=== PATIENT | female | born 1965 | race Caucasian/White ===

== ENCOUNTER → 2016-07-22 | Outpatient (CLI) | payer BC ==
[~2016-07-22] MED LIST: ELET40TA PO; HYDR-5688 PO; LEVO100T PO; LEVO150T PO; ONDA4TAB46 PO; OXYC-57 PO; TOPI100T20 PO; TRAM-10 PO
[2016-07-22 14:59] LABS: THYROID STIMULATING HORMONE 0.139 uIu/ml (0.300-4.500)
== END | disposition home or self-care (01) ==
LOC: C.LABBFT 10:06
PROVIDERS: ATTEND Internal Medicine
DX: E03.9 Hypothyroidism, unspecified (principal)

== ENCOUNTER 2016-11-19 18:23 | Emergency (ER) | payer BC ==
[~2016-11-19] VITALS: Ht 170.2 cm; Wt 72.3 kg
[2016-11-19] VITALS (12 sets, daily range): BP systolic 146–201; BP diastolic 78–125; PULSE 73–97; TEMP 37; O2SAT 95–100; Ht 170.2 cm; Wt 72.3 kg
[~2016-11-19 18:23] MED LIST changes: -ELET40TA PO; -HYDR-5688 PO; -LEVO150T PO; -ONDA4TAB46 PO; -OXYC-57 PO; -TRAM-10 PO
--- NOTE | 2016-11-19 18:43 | EMERGENCY ROOM VISIT NOTE ---
History First contact with patient: 18:35 Chief Complaint: WRIST PAIN Stated Complaint: L WRIST INJURY History of Present Illness The patient is a 51 year old female who presents to the Emergency Room with complaints of left wrist pain. Stood on her husbands knee and stood up to reach something when she fell down onto concrete on her left hand side. Fell onto her outstretched hand behind herself with wrist in full extension. Pain, swelling and ecchymosis following fall with clear deformity of her left wrist. Severity of pain 8/10 in wrist. She denies hitting her head, headache, hip pain or back pain. Mild pain on her lower sacrum. She last ate at 12:30pm and last drank 2:30pm. Review of Systems See HPI for pertinent positives & negatives. A total of 6 systems reviewed and were otherwise negative. Past Medical/Surgical History Medical Problems: (1) Hypothyroid Surgical Problems: (1) History of parotid gland removal Social History Smoking Status: Never Smoker Smokeless Tobacco Use: No Drug Use: none Marital Status: Housing Status: lives with family Current/Historical Medications Scheduled Eletriptan (Relpax), 40 MG PO DIRECTED Levothyroxine Sodium (Synthroid), 150 MCG PO DAILY Scheduled PRN Hydrocodone/Acetaminophen 5MG/325MG (Powell 5MG/325MG), 1 TAB PO TID PRN for Pain Ondansetron Hcl (Zofran), 4 MG PO Q4 PRN for Nausea Tramadol (Ultram), 1 TAB PO PRN UD PRN for Pain Allergies Coded Allergies: Cefixime (Verified Allergy, Severe, RASH, 11/19/16) Sodium Benzoate (Verified Allergy, Severe, RASH, 11/19/16) Clarithromycin (Unverified Allergy, Unknown, Hives, 02/16/13) Sulfa Drugs (Verified Allergy, Unknown, `, 07/07/09) Physical Exam Vital Signs Date Time Temp Pulse Resp B/P (MAP) Pulse Ox O2 Delivery O2 Flow Rate FiO2 11/19/16 22:05 89 20 158/98 95 Room Air 11/19/16 21:40 89 20 146/93 97 Room Air 11/19/16 21:25 86 22 156/99 97 Room Air 11/19/16 21:10 74 18 147/92 95 Room Air 11/19/16 20:55 85 16 158/98 97 Room Air 11/19/16 20:40 78 18 161/98 97 Room Air 11/19/16 20:40 78 20 161/98 97 Room Air 11/19/16 20:35 83 22 164/95 100 Nasal Cannula 2.0 11/19/16 20:30 77 18 170/116 100 Nasal Cannula 2.0 11/19/16 20:25 85 16 173/123 100 Nasal Cannula 2.0 11/19/16 20:20 92 20 201/125 100 Nasal Cannula 2.0 11/19/16 20:15 81 18 147/78 100 Nasal Cannula 2.0 11/19/16 20:02 73 20 144/97 100 Room Air 11/19/16 19:55 37.0 73 20 151/84 100 Room Air 11/19/16 19:52 69 11/19/16 18:30 36.5 71 18 159/100 99 Room Air Physical Exam VITAL SIGNS: were reviewed as above GENERAL: moderate distress from pain, well developed, well nourished HEAD: normocephalic, atraumatic EYES: pupils equal and reactive to light LUNGS: No respiratory distress, clear to auscultation, no accessory muscle use HEART: Regular rate and rhythm, heart sounds 1+2, no murmurs ABDOMEN: Soft and nontender, bowel sounds normal BACK: no CVA tenderness. No cervical, thoracic or lumbar central spinal tenderness. EXTREMITIES: Right shoulder, elbow and wrist palpation revealed no swelling, no pain on palpation over joints, full ROM Left elbow full ROM, no pain on palpation over olecranon process, Left wrist: Swelling and ecchymosis mainly over dorsal aspect of left wrist and proximal 1st MC with clear deformity of distal radial and ulna dorsally. Closed with minimal abrasions on palmar and lateral side of wrist. Minimal movements of wrist flex/ext severely painful. NV intact distally: radial, ulna and medial sensation intact. Cap refill <2s in all finger tips. Able to move all PIPJ/IPJ/ DIPJ 1st-5th digits distally but limited ROM due to pain. NEUROLOGICALLY: Awake alert and oriented. There is no facial droop. Speech is clear. Vision is grossly normal. Medical Decision & Procedures ER Provider Diagnostic Interpretation: LEFT WRIST 4 VIEWS HISTORY: left wrist fall on outstretched hand COMPARISON: None. FINDINGS: Comminuted and dorsally displaced fractures of the distal radius and ulnar styloid. The distal radius fracture demonstrates up to 1.6 cm of dorsal displacement and 2 cm of overlap. There is diffuse soft tissue swelling. No fractures identified within the carpal bones. No radiopaque foreign bodies. IMPRESSION: Displaced fractures of the distal radius and ulnar styloid is right above. Electronically signed by: Rocco Delacruz M.D. 11/19/2016 7:18 PM Dictated Date/Time: 11/19/2016 7:16 PM LEFT WRIST 2 VIEW CLINICAL HISTORY: POST REDUCTION COMPARISON STUDY: Left wrist 11/19/2016. FINDINGS: Overlying splint material obscures fine bony detail. Interval reduction of the distal radius and ulnar styloid fractures. There is improved anatomic alignment. The comminuted distal radius fracture demonstrates mild impaction and up to 5 mm of radial displacement. IMPRESSION: Improved anatomic alignment of the distal radius and ulnar styloid fractures status post reduction. Electronically signed by: Rocco Delacruz M.D. 11/19/2016 9:01 PM Dictated Date/Time: 11/19/2016 9:00 PM Medications Administered Medications (Trade) Dose Ordered Sig/Courtney Route Start Time Stop Time Status Last Admin Dose Admin Ondansetron HCl (Zofran Inj) 4 mg NOW STAT IV 11/19/16 18:51 11/19/16 18:52 DC 11/19/16 19:37 4 MG Morphine Sulfate (MoRPHine SULFATE INJ) 4 mg NOW STAT IV 11/19/16 18:51 11/19/16 18:52 DC 11/19/16 19:38 4 MG Sodium Chloride 1,000 ml @ 999 mls/hr Q1H1M STAT IV 11/19/16 19:17 11/19/16 20:17 DC 11/19/16 20:00 999 MLS/HR Metoclopramide HCl (Reglan Inj) 10 mg NOW STAT IV 11/19/16 20:09 11/19/16 20:10 DC 11/19/16 20:09 10 MG Ondansetron HCl (ZOFRAN ODT 4MG Home Pack) 1 homepack UD ONCE PO 11/19/16 22:00 11/19/16 22:01 DC 11/19/16 22:04 1 HOMEPACK Acetaminophen/ Hydrocodone Bitart (Powell 5/325mg Home Pack) 1 homepack UD ONCE PO 11/19/16 22:00 11/19/16 22:01 DC 11/19/16 22:04 1 HOMEPACK Procedure Please see Dr Carl's note regarding conscious sedation ED Course 18:38 Complete history and physical performed, wrist XR ordered 18:[address] Carl 19:[address] Bates who will come and evaluate the patient further Please refer to Dr Carl;'s note regarding conscious sedation, and Dr Bates' s note regarding closed reduction. 22:07 Patient was reassessed. Sharp pain in wrist under cast. cap refill <2s, full sensation in all finger tips without numbness or tingling. Medical Decision Prior records/ancillary studies reviewed. Triage Nursing notes reviewed. Additional history obtained from patient. The patient's history was concerning distal radial ulna fracture with significant displacement Differential diagnosis: Etiologies such as fracture, dislocation, intra-abdominal, pneumothorax, intrathoracic, intracranial, neurologic, as well as other traumatic pathologies were entertained. Physical examination findings: As above. The patients vitals showed an increased blood pressure but otherwise within normal limits. ER treatment provided: Morphine 4mg IV, Zofran 4mg IV On reassessment the patient felt better. Diagnostic: Wrist XR - distal radial ulna fracture Wrist XR s/p closed reduction - improved alignment post reduction Consultation: A consultation was placed with Dr Bates. The case was discussed and diagnostics were reviewed. Recommended to have ready conscious sedation, finger traps, lidocaine 2% 15ml and he will come to evaluate the patient. The patient was consented and underwent conscious sedated and closed reduction performed by Dr Bates (please see separate notes for these procedures). The patient was observed for one hour following the procedure and is fully awake. She was informed to follow up with her primary care provider regarding her elevated blood pressure which is likely situational. All questions were answered and she was pleased with the treatment. Instructions were given for splint care, . Return instructions were outlined and the patient was discharged in stable condition. Outpatient prescription management: Powell 5/325 1-2 tabs PRN Q8H for pain 14 tabs Zofran 4mg PO Q4H for nausea 10 tabs Referral: The patient was told to call [facility] in the morning regarding follow up appointment in 1-2 days Referred back to her PCP for recheck of her blood pressure within the next week [place] Drug Monitoring Program Search Results: patient reviewed within database, no issues identified Drug Monitoring Findings: Tramadol prescribed by Dr Cevallos for migraines. Last filled 11/09/2016. Information shared by patient before search of database. Consults Time Called: 19:12 Consulting Physician: Dr Bates ([facility]) Returned Call: 19:30 Impression Primary Impression: Fracture of radius, distal, with ulna, left, closed Departure Information Dispostion Home / Self-Care Condition GOOD Prescriptions Ondansetron Hcl (ZOFRAN) 4 Mg Tab 4 MG PO Q4 Y for Nausea for 7 Days, #10 TAB Prov: Rajeev Crum MD 11/19/16 Hydrocodone/Acetaminophen 5MG/325MG (Powell 5MG/325MG) Tab 1 TAB PO TID Y for Pain for 14 Days, #14 TAB PRN PAIN Prov: Rajeev Crum MD 11/19/16 Referrals Ezra Kent M.D. (PCP) Leoncio Bates D.O. Forms Adult Anesthesia/Sedation, HOME CARE DOCUMENTATION FORM, IMPORTANT VISIT INFORMATION, STRAIN/ SPRAIN/BRUISE/FRACTURE, WORK / SCHOOL INSTRUCTIONS Patient Instructions ED Splint Care Plaster, [facility] Additional Instructions ORTHOPEDIC INSTRUCTIONS: DO NOT drive, drink alcohol, operate machinery, or perform dangerous activities today. You were given medications in the ER that can affect your ability to safely function or operate a vehicle. Powell (hydrocodone/acetaminophen) 5/325mg: Take 1-2 pills every 6 hours as needed for breakthrough pain. Avoid alcohol, operating machinery or dangerous equipment, working on ladders or roofs, DRIVING, making important decisions, or situations where being under the influence may be dangerous. It is recommended to use an [id number] stool softener such as Colace, 100mg twice daily while taking this medication to avoid constipation. Read all the package inserts or medication information paperwork provided. If you have any questions or concerns call your primary provider, pharmacist or the ER for assistance. Ice compresses for 20 minutes at a time four times daily for 2-3 days. Use the sling as instructed. Remove your arm from the sling 4-6 times a day and move all the joints around to keep them loose. Rest and elevate your injury as discussed. Do not get the splint wet. If your splint feels excessively tight, you have worsening pain, develop numbness or tingling, or your digits appear blue, loosen the judy wrap. Then reapply the judy wrap gently without removing the splint. If your symptoms are not quickly relieved return to the ER for re-evaluation. Continue current medications. Return to the ER immediately for any numbness, tingling, severe pain, extreme swelling in the extremity or as needed. Call [facility] tomorrow morning ([phone]) to arrange follow up for your injury. This follow up is crucial to proper healing and minimizing potential correction problems from the injury. If you have any problems getting in with or in contact with the Orthopedist call the ER immediately for assistance. Resident Tracking Resident Involvement: Resident Care Provided Care Provided: Adult ED Problem Qualifiers Primary Impression: Fracture of radius, distal, with ulna, left, closed Encounter type: initial encounter Qualified Codes: S52.502A - Unspecified fracture of the lower end of left radius, initial encounter for closed fracture ; S52.602A - Unspecified fracture of lower end of left ulna, initial encounter for closed fracture
[2016-11-19] MEDS ORDERED: ONDANSETRON 4MG OD TAB PO STA (18:44)
[2016-11-19] MEDS ORDERED: OXYCODONE HCL IR 5 MG TAB (IMMEDIATE RELEASE) PO STA (18:44)
[2016-11-19] MEDS ORDERED: MoRPHine SULFATE 4 MG/ML 1 ML CARP\\VIAL IV STA (18:51)
[2016-11-19] MEDS ORDERED: ONDANSETRON INJ 2 MG/ML 2 ML VIAL IV STA (18:51)
[2016-11-19] MEDS ORDERED: LEVO150T PO (18:58)
[2016-11-19] MEDS ORDERED: ELET40TA PO (18:58)
[2016-11-19] MEDS ORDERED: TRAM-10 PO (18:58)
[2016-11-19] MEDS ORDERED: PROPOFOL IV EMULSION 10 MG/ML 20 ML VIAL IV STA (19:17)
[2016-11-19] MEDS ORDERED: KETAMINE HCL INJ 50 MG/ML 10 ML VIAL IV STA (19:17)
[2016-11-19] MEDS ORDERED: SODIUM CHLORIDE 0.9% 1000ML 1,000 ML IV STA (19:17)
--- NOTE | 2016-11-19 19:19 | DIAGNOSTIC IMAGING REPORT ---
LEFT WRIST 4 VIEWS HISTORY: left wrist fall on outstretched hand COMPARISON: None. FINDINGS: Comminuted and dorsally displaced fractures of the distal radius and ulnar styloid. The distal radius fracture demonstrates up to 1.6 cm of dorsal displacement and 2 cm of overlap. There is diffuse soft tissue swelling. No fractures identified within the carpal bones. No radiopaque foreign bodies. IMPRESSION: Displaced fractures of the distal radius and ulnar styloid is right above. Electronically signed by: Rocco Delacruz M.D. 11/19/2016 7:18 PM Dictated Date/Time: 11/19/2016 7:16 PM
[2016-11-19] MEDS ORDERED: XYLOCAINE 1%/SOD BICARB 20 ML VIAL INFIL STA (19:32)
--- NOTE | 2016-11-19 20:07 | EMERGENCY ROOM VISIT NOTE ---
History Report prepared by Arlen: Amaya Torres Under the Supervision of: Dr. Segundo Carl M.D. First contact with patient: 18:35 Chief Complaint: WRIST PAIN Stated Complaint: L WRIST INJURY History of Present Illness The patient is a 51 year old female who presents to the Emergency Room with complaints of constant left wrist pain secondary to a fall occurring [employer]. The patient was standing on her 's leg and trying to reach for something. She lost her balance and fell backwards, landing on her left wrist on the concrete floor. She rates her current pain as a 4/10. Ice helps to alleviate her pain, while movement exacerbates her pain. The patient denies any other injury. 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 A total of 10 systems reviewed and were otherwise negative. Past Medical & Surgical Medical Problems: (1) Hypothyroid (2) Migraine Surgical Problems: (1) History of parotid gland removal Family History Cancer Diabetes mellitus Heart disease Hypertension Lung disease Seizures Social History Smoking Status: Never Smoker Smokeless Tobacco Use: No Alcohol Use: occasionally Marital Status: Housing Status: lives with family Occupation Status: employed Current/Historical Medications Scheduled Eletriptan (Relpax), 40 MG PO DIRECTED Levothyroxine Sodium (Synthroid), 150 MCG PO DAILY Scheduled PRN Hydrocodone/Acetaminophen 5MG/325MG (Longview 5MG/325MG), 1 TAB PO TID PRN for Pain Ondansetron Hcl (Zofran), 4 MG PO Q4 PRN for Nausea Tramadol (Ultram), 1 TAB PO PRN UD PRN for Pain Allergies Coded Allergies: Cefixime (Verified Allergy, Severe, RASH, 11/19/16) Sodium Benzoate (Verified Allergy, Severe, RASH, 11/19/16) Clarithromycin (Unverified Allergy, Unknown, Hives, 02/16/13) Sulfa Drugs (Verified Allergy, Unknown, `, 07/07/09) Physical Exam Vital Signs Date Time Temp Pulse Resp B/P (MAP) Pulse Ox O2 Delivery O2 Flow Rate FiO2 11/19/16 22:05 89 20 158/98 95 Room Air 11/19/16 21:40 89 20 146/93 97 Room Air 11/19/16 21:25 86 22 156/99 97 Room Air 11/19/16 21:10 74 18 147/92 95 Room Air 11/19/16 20:55 85 16 158/98 97 Room Air 11/19/16 20:40 78 18 161/98 97 Room Air 11/19/16 20:40 78 20 161/98 97 Room Air 11/19/16 20:35 83 22 164/95 100 Nasal Cannula 2.0 11/19/16 20:30 77 18 170/116 100 Nasal Cannula 2.0 11/19/16 20:25 85 16 173/123 100 Nasal Cannula 2.0 11/19/16 20:20 92 20 201/125 100 Nasal Cannula 2.0 11/19/16 20:15 81 18 147/78 100 Nasal Cannula 2.0 11/19/16 20:02 73 20 144/97 100 Room Air 11/19/16 19:55 37.0 73 20 151/84 100 Room Air 11/19/16 19:52 69 11/19/16 18:30 36.5 71 18 159/100 99 Room Air Physical Exam GENERAL: Patient is a healthy-appearing well-nourished middle-aged female. HEAD: Normocephalic atraumatic EYES: Ocular movements intact pupils equal and react to light OROPHARYNX mucous membranes are moist no exudates present no erythema or edema present NECK: Supple no nuchal rigidity CHEST: Good equal expansion LUNGS: Clear and equal to auscultation CARDIAC: Normal S1 and S2 ABDOMEN: Soft nontender no guarding BACK: No CVA tenderness EXTREMITIES: Obvious deformity to the left wrist, NVI. No clubbing cyanosis or edema NEURO: Patient is following commands and answering questions appropriately. Alert and oriented x3 Cranial Nerves 2-12 grossly intact Medical Decision & Procedures ER Provider Diagnostic Interpretation: Radiology results as stated below per my review and radiologist interpretation: LEFT WRIST 4 VIEWS HISTORY: left wrist fall on outstretched hand COMPARISON: None. FINDINGS: Comminuted and dorsally displaced fractures of the distal radius and ulnar styloid. The distal radius fracture demonstrates up to 1.6 cm of dorsal displacement and 2 cm of overlap. There is diffuse soft tissue swelling. No fractures identified within the carpal bones. No radiopaque foreign bodies. IMPRESSION: Displaced fractures of the distal radius and ulnar styloid is right above. Electronically signed by: Rocco Delacruz M.D. 11/19/2016 7:18 PM Dictated Date/Time: 11/19/2016 7:16 PM LEFT WRIST 2 VIEW CLINICAL HISTORY: POST REDUCTION COMPARISON STUDY: Left wrist 11/19/2016. FINDINGS: Overlying splint material obscures fine bony detail. Interval reduction of the distal radius and ulnar styloid fractures. There is improved anatomic alignment. The comminuted distal radius fracture demonstrates mild impaction and up to 5 mm of radial displacement. IMPRESSION: Improved anatomic alignment of the distal radius and ulnar styloid fractures status post reduction. Electronically signed by: Rocco Delacruz M.D. 11/19/2016 9:01 PM Dictated Date/Time: 11/19/2016 9:00 PM Medications Administered Medications (Trade) Dose Ordered Sig/Courtney Route Start Time Stop Time Status Last Admin Dose Admin Ondansetron HCl (Zofran Inj) 4 mg NOW STAT IV 11/19/16 18:51 11/19/16 18:52 DC 11/19/16 19:37 4 MG Morphine Sulfate (MoRPHine SULFATE INJ) 4 mg NOW STAT IV 11/19/16 18:51 11/19/16 18:52 DC 11/19/16 19:38 4 MG Sodium Chloride 1,000 ml @ 999 mls/hr Q1H1M STAT IV 11/19/16 19:17 11/19/16 20:17 DC 11/19/16 20:00 999 MLS/HR Metoclopramide HCl (Reglan Inj) 10 mg NOW STAT IV 11/19/16 20:09 11/19/16 20:10 DC 11/19/16 20:09 10 MG Ondansetron HCl (ZOFRAN ODT 4MG Home Pack) 1 homepack UD ONCE PO 11/19/16 22:00 11/19/16 22:01 DC 11/19/16 22:04 1 HOMEPACK Acetaminophen/ Hydrocodone Bitart (Longview 5/325mg Home Pack) 1 homepack UD ONCE PO 11/19/16 22:00 11/19/16 22:01 DC 11/19/16 22:04 1 HOMEPACK Acetaminophen/ Hydrocodone Bitart (Longview 5/325 Tab) 1 tab ONE STAT PO 11/19/16 22:06 11/19/16 22:07 DC 11/19/16 22:11 1 TAB Procedure Procedural Sedation Indication reduction of left wrist fracture. Total time: 25 minutes. Written consent was obtained after the risks and benefits were explained to the patient, including, but not limited to aspiration, allergic reaction, breathing difficulties, cardiac complications, vomiting, pain, event recall, bleeding, and /or infection. Pre-sedation examination and paperwork completed. The patient was on 100% oxygen via NRB prior to the procedure. Continous end tidal CO2 monitoring, pulse oximetry, and cardiac monitoring were utilized. Suction, airway equipment, medications, respiratory equipment, and appropriate personnel were prepared prior to the initiation of the procedure. A time out was taken. Sedation was achieved utilizing 35 mg of Ketamine, and 35 x3 mg of propofol. After I observed the patient had reached the appropriate level of sedation the main procedure was performed without complication. Sedation was discontinued and the monitoring continued. The patient recovered quickly from the effects of the medication without complication or adverse event. ED Course 1834: Past medical records reviewed. The patient was evaluated in room C7. A complete history and physical examination was performed by the resident, Dr. Crum. 1850: Morphine sulfate 4 mg IV, Zofran 4 mg IV 1906: I evaluated the patient at this time. I updated her on the results and treatment plan. I discussed the conscious sedation procedure with her and she verbalized agreement. 1916: Propofol 35 mg x3 IV, Ketamine 35 mg IV, NSS 1000 ml @ 999 mls/hr IV 1929: Dr. Bates of [facility] is going to come to the ED to reduce the patient's left wrist. 1940: The patient was moved to room B1 to prepare for the procedure. 2005: At this time Dr. Bates arrived in the ED. He is examining the patient at this time and we will perform a reduction with conscious sedation. Please see the procedure note for further details. 2008: Reglan 10 mg IV 2146: I reassessed the patient at this time. She is feeling better and resting comfortably. I discussed the results and treatment plan with the patient and her family. I answered all pertaining questions that they had. They expressed understanding and verbalized agreement. The patient will be discharged home. 2199: Longview 5/325 mg PO 1 homepack, Zofran 4 mg PO 1 homepack, Longview 5/325 mg PO Medical Decision Differential diagnosis: Etiologies such as fracture, dislocation, neurovascular compromise, compartment syndrome, soft tissue injury, as well as others were entertained. Medication Reconciliation: I attest that I have personally reviewed the patient' s current medication list Blood Pressure Screening: Patient was found to have an elevated blood pressure and was referred to their primary care doctor for recheck and further treatment. Resident Physician Supervision Note: I interviewed and examined the patient. Discussed with Dr. Crum and agree with findings and plan as documented in the note. Documented By: Segundo Carl Consults Time Called: 1911 Consulting Physician: Dr. Bates Returned Call: 1929 Dr. Bates of [facility] is going to come to the ED to reduce the patient's left wrist. Impression Primary Impression: Fracture of radius, distal, with ulna, left, closed Scribe Attestation The scribe's documentation has been prepared under my direction and personally reviewed by me in its entirety. I confirm that the note above accurately reflects all work, treatment, procedures, and medical decision making performed by me. Departure Information Dispostion Home / Self-Care Prescriptions Ondansetron Hcl (ZOFRAN) 4 Mg Tab 4 MG PO Q4 Y for Nausea for 7 Days, #10 TAB Prov: Rajeev Crum MD 11/19/16 Hydrocodone/Acetaminophen 5MG/325MG (Longview 5MG/325MG) Tab 1 TAB PO TID Y for Pain for 14 Days, #14 TAB PRN PAIN Prov: Rajeev Crum MD 11/19/16 Referrals Ezra Kent M.D. (PCP) Leoncio Bates D.O. Forms HOME CARE DOCUMENTATION FORM, IMPORTANT VISIT INFORMATION, WORK / SCHOOL INSTRUCTIONS Patient Instructions ED Splint Care Rachel, My [facility] Additional Instructions ORTHOPEDIC INSTRUCTIONS: DO NOT drive, drink alcohol, operate machinery, or perform dangerous activities today. You were given medications in the ER that can affect your ability to safely function or operate a vehicle. Longview (hydrocodone/acetaminophen) 5/325mg: Take 1-2 pills every 6 hours as needed for breakthrough pain. Avoid alcohol, operating machinery or dangerous equipment, working on ladders or roofs, DRIVING, making important decisions, or situations where being under the influence may be dangerous. It is recommended to use an [id number]-igujtzj stool softener such as Colace, 100mg twice daily while taking this medication to avoid constipation. Read all the package inserts or medication information paperwork provided. If you have any questions or concerns call your primary provider, pharmacist or the ER for assistance. Ice compresses for 20 minutes at a time four times daily for 2-3 days. Use the sling as instructed. Remove your arm from the sling 4-6 times a day and move all the joints around to keep them loose. Rest and elevate your injury as discussed. Do not get the splint wet. If your splint feels excessively tight, you have worsening pain, develop numbness or tingling, or your digits appear blue, loosen the judy wrap. Then reapply the judy wrap gently without removing the splint. If your symptoms are not quickly relieved return to the ER for re-evaluation. Continue current medications. Return to the ER immediately for any numbness, tingling, severe pain, extreme swelling in the extremity or as needed. Call [facility] tomorrow morning ([phone]) to arrange follow up for your injury. This follow up is crucial to proper healing and minimizing potential prison problems from the injury. If you have any problems getting in with or in contact with the Orthopedist call the ER immediately for assistance. Then reapply the judy wrap gently without removing the splint. If your symptoms are not quickly relieved return to the ER for re-evaluation. Continue current medications. Return to the ER immediately for any numbness, tingling, severe pain, extreme swelling in the extremity or as needed. Call [facility] tomorrow to arrange follow up for your injury. This follow up is crucial to proper healing and minimizing potential prison problems from the injury. If you have any problems getting in with or in contact with the Orthopedist call the ER immediately for assistance Problem Qualifiers Primary Impression: Fracture of radius, distal, with ulna, left, closed Encounter type: initial encounter Qualified Codes: S52.502A - Unspecified fracture of the lower end of left radius, initial encounter for closed fracture ; S52.602A - Unspecified fracture of lower end of left ulna, initial encounter for closed fracture
[2016-11-19] MEDS ORDERED: METOCLOPRAMIDE HCL INJ 5 MG/ML 2 ML VIAL IV STA (20:09)
[2016-11-19] MEDS ORDERED: METOCLOPRAMIDE HCL INJ 5 MG/ML 2 ML VIAL ONE (20:10)
--- NOTE | 2016-11-19 20:41 | EMERGENCY ROOM VISIT NOTE ---
Post-Moderate Sedation Plan General Date of Moderate Sedation Nov 19, 2016. Vital Signs: Vital Signs Past 12 Hours Date Time Temp Pulse Resp B/P (MAP) Pulse Ox O2 Delivery O2 Flow Rate FiO2 11/19/16 20:02 73 20 144/97 100 Room Air 11/19/16 19:55 37.0 73 20 151/84 100 Room Air 11/19/16 19:52 69 11/19/16 18:30 36.5 71 18 159/100 99 Room Air Review - Discharge Plan Post Moderate Sedation Plan: On clinical assessment, the patient appears to have tolerated the conscious sedation without complications. Patient is recovering as anticipated. Patient will continue to be monitored by nursing and may be discharged when conscious sedation discharge criteria are met.
--- NOTE | 2016-11-19 20:42 | EMERGENCY ROOM VISIT NOTE ---
Pre-Mod Sedation Assessment General Date of Moderate Sedation: Nov 19, 2016. Vital Signs: Vital Signs Past 12 Hours Date Time Temp Pulse Resp B/P (MAP) Pulse Ox O2 Delivery O2 Flow Rate FiO2 11/19/16 20:02 73 20 144/97 100 Room Air 11/19/16 19:55 37.0 73 20 151/84 100 Room Air 11/19/16 19:52 69 11/19/16 18:30 36.5 71 18 159/100 99 Room Air Review Cardiovascular: regular rate, rhythm, no edema, no gallop, no JVD, no murmur, normal peripheral pulses Abdomen: normal bowel sounds, non tender, soft, no organomegaly, no pulsatile mass, normal rectal exam, occult blood negative Lungs: chest non-tender, lungs clear, normal breath sounds, no respiratory distress, no accessory muscle use Airway Class: I Pre-Sedation Airway Assessment Oral Cavity: WNL Short Thick Neck: No Hx of Sleep Apnea: No Smoking Status: Never Smoker Mallampati Classification: Class I (Sft palate,uvula,fauces,pillar) ASA Classification: Class I Procedure Planning Contraindications-for Mod Sed: None Yes Notes The planned sedation has been discussed with the patient and consent obtained. I have identified the patient, determined the appropriateness of sedation and have assessed the patient immediately prior to the procedure. All medicine(s) and interventions are by my order.
--- NOTE | 2016-11-19 21:02 | DIAGNOSTIC IMAGING REPORT ---
LEFT WRIST 2 VIEW CLINICAL HISTORY: POST REDUCTION COMPARISON STUDY: Left wrist 11/19/2016. FINDINGS: Overlying splint material obscures fine bony detail. Interval reduction of the distal radius and ulnar styloid fractures. There is improved anatomic alignment. The comminuted distal radius fracture demonstrates mild impaction and up to 5 mm of radial displacement. IMPRESSION: Improved anatomic alignment of the distal radius and ulnar styloid fractures status post reduction. Electronically signed by: Rocco Delacruz M.D. 11/19/2016 9:01 PM Dictated Date/Time: 11/19/2016 9:00 PM
--- NOTE | 2016-11-19 21:25 | ORTHOPEDIC CONSULTATION ---
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 She had displaced fractures of her wrist at the radius and ulna. Unable to use the extremity, she was transported to [facility]. She was seen and examined by the Emergency Department physicians, radiographed and consultation was made for orthopedics. The patient had no loss of consciousness. No head or neck trauma. No other complaints with the exception of the left upper extremity. PAST MEDICAL HISTORY: Hypothyroidism. PAST SURGICAL HISTORY: Noncontributory. ALLERGIES: CEFIXIME, SODIUM BENZOATE, CLARITHROMYCIN, AND SULFA DRUGS. MEDICATIONS: Relpax 40 mg p.o. as directed and Synthroid 150 mcg p.o. daily, Ultram 1 tab p.o. p.r.n. pain. SOCIAL HISTORY: Denies tobacco or drug use. She is an occasional alcohol user. She is . She is employed with the [employer] and lives with her . PHYSICAL EXAMINATION: GENERAL: This is a 51-year-old female, who is well-nourished, well-hydrated, in no acute distress. She is lying supine on the Emergency Department transfer cart. Responds appropriately to questioning. EXTREMITIES: Examination of the left upper extremity demonstrates obvious deformity with dorsal angulation of the left distal radius and ulna. There are minor superficial abrasions on the volar aspect of her left wrist. Radial, ulnar, median nerve, sensory and motor function are intact. Radial pulse is 2/4 bilateral upper extremities. Sensation is intact. Limited strength and motion due to pain and guarding in the left upper extremity. IMAGING DATA: Radiographs demonstrate a comminuted intra-articular dorsally angulated and displaced left distal radius and ulnar fractures. There is approximately 90% dorsal displacement. IMPRESSION: Left displaced comminuted intra-articular distal radius and ulna fractures status post fall on outstretched hand. RECOMMENDATIONS: Conscious sedation, closed reduction and application of sugar tong plaster splint, ice, elevation, pain medication and follow up with Dr. Bates at [place] [facility] for definitive surgical management. PROCEDURE NOTE: After obtaining written and verbal consent from the patient, the patient was then placed under monitored care with supplemental O2. The Emergency Room physician administered conscious sedation. Left upper extremity was then placed carefully in the finger trap traction with approximately 14 pounds of counter weights placed over the upper brachium. After a period of approximately 5 minutes of relaxation and ligamentotaxis, a gentle closed reduction maneuver was performed. Xeroform gauze was applied over the abrasions on the volar aspect of the wrist and then a well-padded sugar tong plaster splint was applied to the left upper extremity and closed reduction maneuver was then maintained. The patient was then removed from the finger trap traction. Post-reduction radiographs were obtained noting a sufficient reduction and stabilization with plaster splint. The patient was then awakened and given followup instructions. BIRD
[2016-11-19] MEDS ORDERED: HYDR-5688 PO (21:50)
[2016-11-19] MEDS ORDERED: ONDA4TAB46 PO (21:51)
[2016-11-19] MEDS ORDERED: NORCO 5/325MG HOME PACK PO ONE (22:00)
[2016-11-19] MEDS ORDERED: ONDANSETRON HOME PACK 4MG OD TAB PO ONE (22:00)
[2016-11-19] MEDS ORDERED: HYDROCODONE/ACETAMOPHEN 5/325MG TAB PO STA (22:06)
== END 2016-11-19 22:26 | disposition home or self-care (01) ==
LOC: C.EDB 18:25
DX: S52.502A Unspecified fracture of the lower end of left radius, initial encounter for closed fracture (principal); S52.602A Unspecified fracture of lower end of left ulna, initial encounter for closed fracture; W17.89XA Other fall from one level to another, initial encounter; E03.9 Hypothyroidism, unspecified; Z79.899 Other long term (current) drug therapy; Z98.890 Other specified postprocedural states; Z88.2 Allergy status to sulfonamides; Z88.3 Allergy status to other anti-infective agents; Z88.8 Allergy status to other drugs, medicaments and biological substances; Z80.9 Family history of malignant neoplasm, unspecified; Z83.3 Family history of diabetes mellitus; Z82.49 Family history of ischemic heart disease and other diseases of the circulatory system; Z82.0 Family history of epilepsy and other diseases of the nervous system

== ENCOUNTER 2016-11-22 09:56 | Day surgery (SDC) | payer BC ==
--- NOTE | 2016-11-21 16:45 | HISTORY & PHYSICAL EXAMINATION ---
DATE OF ADMISSION: 11/22/2016 CHIEF COMPLAINT: Left wrist pain. HISTORY OF PRESENT ILLNESS: This is a patient who had a fall onto an outstretched left hand with her arm stretched behind. She had significant pain within the wrist. She is noted to have a 100% displaced distal radius fracture which was reviewed by Dr. Bates in the Emergency Room at [facility] ER. X-ray showed improvement in the alignment of the 3-part intraarticular distal radius fracture; however, the fracture requires surgery. She is now being set up for ORIF of the fracture. PAST MEDICAL HISTORY: Hypothyroidism. FAMILY HISTORY: Noncontributory. SOCIAL HISTORY: The patient denies alcohol and tobacco use. PAST SURGICAL HISTORY: Left hip surgery for labral debridement.
--- NOTE | 2016-11-21 16:51 | HISTORY & PHYSICAL EXAMINATION ---
DATE OF ADMISSION: 11/22/2016 CHIEF COMPLAINT: Left wrist pain. HISTORY OF PRESENT ILLNESS: This is a patient who sustained a fall on the outstretched left hand with her arm and chest behind her. She is on the left wrist and had significant pain at rest. She was taken to [facility] ER where x-rays were performed. She was noted to have a 100% displaced fracture and closed reduction was performed by Dr. Bates in the ER and she was placed in a splint. She is now being set up for surgical treatment. PAST MEDICAL HISTORY: Hypothyroidism. FAMILY HISTORY: Noncontributory. SOCIAL HISTORY: The patient denies tobacco use. PAST SURGICAL HISTORY: Left hip labrum surgery and a right parotid surgery. ALLERGIES: SULFA MEDICATIONS. CURRENT MEDICATIONS: Synthroid and Relpax. OBJECTIVE PHYSICAL EXAMINATION: GENERAL: The patient is alert and oriented x3. She is in no acute distress. She is a well-dressed, well-nourished 61-year-old female. Affect is appropriate. CARDIOVASCULAR: Radial pulse +2/4. Cap refill is less than 2 seconds. HEART: Has a regular rhythm and rate without murmurs. LUNGS: Clear to auscultation bilaterally. LYMPHATICS: No evidence of any swollen lymph nodes. MUSCULOSKELETAL: Left upper extremity is in a sugar tong splint. The patient's fingers were mobile. There is mild to moderate swelling of the fingers. No range of motion or strength testing are performed in the left wrist. NEUROLOGIC: Sensation normal and intact distally in the left upper extremity. SKIN: There are no scars, rashes or ulcers noted. X-RAY EXAMINATION: Multiple views of the left wrist demonstrate a displaced intraarticular 3-part distal radius fracture with a splint in place. ASSESSMENT AND DIAGNOSES: 1. Left displaced, angulated distal radius fracture which is intraarticular. PLAN: Above assessment was discussed with the patient. At this time it was recommended the patient undergo an ORIF of the left distal radius fracture. All potential risks, benefits, complications, alternatives and rehab have been discussed with the patient. At this time, she wishes to proceed with the surgery as indicated. She was scheduled for surgery on 11/22/2016. BIRD
[2016-11-21 16:59] VITALS: BMI 23.0
[~2016-11-22] VITALS: Ht 170.2 cm; Wt 69.0 kg
[~2016-11-22 09:56] MED LIST changes: +ATROPINE SULFATE 0.1 MG/ML 5ML SYR IV PRN; +CEFAZOLIN 1000MG/55 ML D5W IV SCH; +ELET40TA PO; +EpHEDrine SULFATE INJ 50 MG/ML AMP IV PRN; +FENTANYL CITRATE INJ 50 MCG/1 ML 2 ML VIAL IV PRN; +HYDR-5688 PO; +HYDROmorphone INJ 1 MG/ML SYR IV PRN; -LEVO100T PO; +LEVO150T PO; +ONDA4TAB46 PO; +ONDANSETRON INJ 2 MG/ML 2 ML VIAL IV PRN; -TOPI100T20 PO; +TRAM-10 PO
[2016-11-22 10:14] VITALS: BP 138/82; PULSE 80; TEMP 36.8; O2SAT 96; Ht 170.2 cm; Wt 69.0 kg
--- NOTE | 2016-11-22 10:43 | History & Physical Bridge Note ---
H&P Re-Evaluation Bridge Note: I have examined the patient, reviewed the History & Physical and in the interval since the performance of the History & Physical I have noted the following changes of clinical significance: No changes noted
[2016-11-22] MEDS ORDERED: FENTANYL CITRATE INJ 50 MCG/1 ML 2 ML VIAL ONE (10:59)
[2016-11-22] MEDS ORDERED: MIDAZOLAM HCL 1 MG/ML 2ML VIAL ONE (11:00)
[2016-11-22] MEDS ORDERED: ROPIVACAINE 0.5% 5 MG/ML 30 ML VIAL ONE (11:42)
[2016-11-22] MEDS ORDERED: BACITRACIN 50000 UNIT VIAL ONE (14:25)
[2016-11-22] MEDS ORDERED: DEXAMETHASONE SOD INJ 4 MG/ML VIAL ONE (15:04)
[2016-11-22] MEDS ORDERED: LIDOCAINE HCL 2% 2 ML VIAL (20MG/ML) ONE (15:04)
[2016-11-22] MEDS ORDERED: PROPOFOL IV EMULSION 10 MG/ML 20 ML VIAL IV ONE (15:04)
[2016-11-22] MEDS ORDERED: ONDANSETRON INJ 2 MG/ML 2 ML VIAL ONE (15:04)
[2016-11-22] MEDS ORDERED: PHENYLEPHRINE 100MCG/ML 5ML SYR ONE (15:19)
--- NOTE | 2016-11-22 16:17 | DIAGNOSTIC IMAGING REPORT ---
INTRAOPERATIVE RADIOGRAPHS CLINICAL HISTORY: Open reduction and internal fixation of a distal left radial fracture. Fluoroscopy time: 56 seconds. FINDINGS: 2 spot fluoroscopic views of the left wrist are correlated with radiographs dated 11/19/2016. There has been buttress plate fixation of a comminuted distal radial fracture with taoism of near-anatomic alignment. Numerous cortical lag screws transfix the buttress plate. The orthopedic hardware appears intact. There is also an avulsion fracture of the ulnar styloid. Soft tissue edema is noted. IMPRESSION: Intraoperative images from open reduction and internal fixation of the left wrist as above. Electronically signed by: Markell Shaw M.D. 11/22/2016 4:15 PM Dictated Date/Time: 11/22/2016 4:14 PM
--- NOTE | 2016-11-22 16:17 | DIAGNOSTIC IMAGING REPORT ---
INTRAOPERATIVE RADIOGRAPHS CLINICAL HISTORY: Open reduction and internal fixation of a distal left radial fracture. Fluoroscopy time: 56 seconds. FINDINGS: 2 spot fluoroscopic views of the left wrist are correlated with radiographs dated 11/19/2016. There has been buttress plate fixation of a comminuted distal radial fracture with judaism of near-anatomic alignment. Numerous cortical lag screws transfix the buttress plate. The orthopedic hardware appears intact. There is also an avulsion fracture of the ulnar styloid. Soft tissue edema is noted. IMPRESSION: Intraoperative images from open reduction and internal fixation of the left wrist as above. Electronically signed by: Markell Shaw M.D. 11/22/2016 4:15 PM Dictated Date/Time: 11/22/2016 4:14 PM
--- NOTE | 2016-11-22 16:23 | [facility] Post Operative Brief Note ---
Immediate Operative Summary Operative Date Nov 22, 2016. Pre-Operative Diagnosis Left displaced, comminuted, intraarticular distal radius fracture with fracture ulnar styloid Post-Operative Diagnosis Left displaced, comminuted, intraarticular distal radius fracture with fracture ulnar styloid Procedure(s) Performed Open Reduction Internal Fixation Left Comminuted, Displaced, Intraarticular 5-part Distal Radius Fracture; Closed treatment ulnar styloid fracture Surgeon Dr Bates [employer] Surgeon(s) Demond Dennison PA-C Estimated Blood Loss 3ML Findings See Dict Specimens none Drains None Anesthesia GLMA w/ Axillary block Complication(s) None Disposition Recovery Room / PACU
[2016-11-22] MEDS ORDERED: OXYCODONE HCL IR 5 MG TAB (IMMEDIATE RELEASE) PO PRN (16:30)
[2016-11-22] MEDS ORDERED: MoRPHine SULFATE 2 MG/ML CARP IV PRN (16:30)
[2016-11-22] MEDS ORDERED: OXYCODONE/ACETAMINOPHEN 5-325 TAB PO PRN (16:30)
[2016-11-22] MEDS ORDERED: ACETAMINOPHEN 325 MG TAB PO PRN (16:30)
[2016-11-22] MEDS ORDERED: ONDANSETRON INJ 2 MG/ML 2 ML VIAL IV PRN (16:30)
--- NOTE | 2016-11-22 16:37 | Discharge Instructions ---
Discharge Instructions Date of Service Nov 22, 2016. Visit Reason for Visit: Left Wrist Distal Radius Fracture; M84.434a Discharge Discharge Diagnosis / Problem: Left Distal Radius Fracture Discharge Goals Goal(s): Decrease discomfort, Improve function Activity Recommendations Activity Limitations: per Instructions/Follow-up section Weightbearing Status: Left non-weightbearing Anesthesia . Post Anesthesia Instructions: If you have had General Anesthesia or IV Sedation: * Do not drive today. * Resume driving when surgeon permits. * Do not make important decisions or sign legal documents today. * Call surgeon for: 1. Temperature elevations greater than 101 degrees F. 2. Uncontrollable pain. 3. Excessive bleeding. 4. Persistent nausea and vomiting. 5. Medication intolerance (nausea, vomiting or rash). * For nausea and vomiting use only clear liquids such as: tea, soda, bouillon until nausea subsides, then gradually increase diet as tolerated. * If you have any concerns or questions, call your surgeon's office. If physician is unavailable and it is an emergency, call 911 or go to the nearest emergency room. . Instructions / Follow-Up Instructions / Follow-Up ACTIVITY RECOMMENDATIONS: * Place no weight on the left wrist. No lifting with the left hand and wrist SPECIAL CARE INSTRUCTIONS: * Keep dressing/splint clean and dry. * Some drainage onto the dressing may occur. This is normal. * If the bandage feels excessively tight, you may loosen the elastic bandage. Then call the physician's office for further instructions. * If possible, keep your hand elevated above the level of your heart for the first 2 post operative days. You may use a sling if necessary. * You should move your fingers regularly (50-100 motions per hour) unless otherwise instructed. SPECIAL PRECAUTIONS: * If you notice increased drainage, fever over 101 degrees F. or severe, unremitting pain, call your physician/office at . * You may have been prescribed pain medication. If you experience nausea and/or skin rash, discontinue this medication and contact our office for an alternative medication. FOLLOW UP VISIT: If appointment is not already scheduled: Please call [facility] [place] to make a follow-up appointment 10-14 days from the day of your surgery at . Diet Recommendations Recommended Home Diet: resume previous diet Procedures Procedures Performed: Open Reduction Internal Fixation Left Comminuted, Displaced, Intraarticular 5-part Distal Radius Fracture; Closed treatment ulnar styloid fracture Pending Studies Studies pending at discharge: no Medical Emergencies . Who to Call and When: Medical Emergencies: If at any time you feel your situation is an emergency, please call 911 immediately. . Non-Emergent Contact Non-Emergency issues call your: Surgeon Call Non-Emergent contact if: temperature is above 101.5, your pain is not controlled, your pain is worsening, wound has increased drainage, wound has increased redness . . "Provider Documentation" section prepared by Demond Dennison. . [place] Drug Monitoring Program Search Results: patient reviewed within database, see additional documentation Drug Monitoring Findings: Pt with recent 5 day supply of Corbett given 11/19/16. Pt to stop taking Corbett at this time and new Rx given for pain control. Dr Bates aware.
[2016-11-22] MEDS ORDERED: OXYC-57 PO (16:38)
--- NOTE | 2016-11-22 17:03 | Anesthesiology Progress Note ---
Anesthesia Post Op Note Date & Time Nov 22, 2016 at 17:03 Vital Signs Pain Intensity: 0 Vital Signs Past 12 Hours Date Time Temp Pulse Resp B/P (MAP) Pulse Ox O2 Delivery O2 Flow Rate FiO2 11/22/16 16:55 83 14 116/69 93 Nasal Cannula 11/22/16 16:45 89 18 109/63 92 Nasal Cannula 11/22/16 16:35 79 18 109/69 99 Mask 10 11/22/16 16:26 37.0 79 18 117/74 99 Mask 10 11/22/16 10:14 36.8 80 18 138/82 96 Room Air Notes Mental Status: alert / awake / arousable, participated in evaluation Pt Amnestic to Procedure: Yes Nausea / Vomiting: adequately controlled Pain: adequately controlled Airway Patency, RR, SpO2: stable & adequate BP & HR: stable & adequate Hydration State: stable & adequate Anesthetic Complications: no major complications apparent
[2016-11-22 17:15] VITALS: BP 111/60; PULSE 76; TEMP 36.6; O2SAT 94
[2016-11-22 17:45] VITALS: BP 113/61; PULSE 76; O2SAT 96
[2016-11-22 18:15] VITALS: BP 115/62; PULSE 81; TEMP 37.1; O2SAT 95
--- NOTE | 2016-11-22 22:33 | OPERATIVE REPORT ---
DATE OF OPERATION: 11/22/2016 PREOPERATIVE DIAGNOSIS: Left comminuted displaced intraarticular 5-part distal radius fracture with fracture of the ulnar styloid. POSTOPERATIVE DIAGNOSIS: Same. PROCEDURE: 1. Open reduction internal fixation left comminuted displaced intraarticular 5-part distal radius fracture 2. Closed treatment ulnar styloid fracture. SURGEON: Dr. Bates. DIETARY INTERNSHIP: JAZMYNE Stephens, who was present for patient positioning, sterile prep and drape, management of retractors and instruments. He was present through the critical portions of the case including wound closure, application of sterile dressing and transport of the patient to recovery. ANESTHESIA: General LMA with axillary block. SPECIMENS: None. DRAINS: None. COMPLICATIONS: None. BLOOD LOSS: 5 mL PERTINENT HISTORY: This is a 51-year-old female who had sustained a fall on outstretched left upper extremity. She was seen in the Emergency Department, had closed reduction and splinting. This was performed due to the significant displacement and angulation that she had after her fracture. She had fallen off her 's knee while stepping off onto a roll-off for a vehicle. The patient was scheduled for surgery as indicated. All potential risks, benefits, complications, alternatives, rehab, potential for incomplete relief of symptoms, need for further surgery, DVT, PE, , persistent pain, swelling, scarring, weakness, neurovascular injury, wound complications, hardware failure, nonunion, malunion, or tendon injury were discussed with the patient. The patient decided to proceed with the procedure as indicated. PROCEDURE IN DETAIL: After axillary block was administered in the preop holding area, the patient was then taken to the operative suite and placed supine on the operating room table. After review of the consent and identification of proper operative site, the patient anesthetized, LMA was placed. Tourniquet was placed high on the left upper extremity over cast padding. Left upper extremity was then sterilely prepped and draped in usual fashion, elevated, and exsanguinated with Esmarch bandage and tourniquet inflated to 250 mmHg. A 15 blade scalpel incision was made along the radial aspect of the flexor carpi radialis on the volar aspect of the left wrist. This incision was then deepened through the subcutaneous tissue. Meticulous hemostasis achieved with electrocautery. Full-thickness skin flaps were developed. The superficial cutaneous nerve and the superficial vein were then retracted and protected. The Dada's fascia was incised in line with the skin incision, revealing the radial artery, vein and nerve which was retracted radially. Next, the pronator quadratus was then incised along its radial border, revealing the volar aspect of the distal radius. Next, soft tissue and muscle were then elevated from the volar aspect of the distal radius, revealing the comminuted fracture. A George retractor was placed to retract soft tissue as well as a Weitlaner. Using a [place] elevator to disimpact the fragments, these were then reassembled into near anatomic alignment and then the radial styloid was pinned with two 1.6 mm guide pins placed under live fluoroscopic assistance in an oblique fashion to stabilize distal radius. Next, a transverse 1.6 mm guide pin was placed from the radial aspect of the radius through its distal aspect, angled toward the ulna. Next, a Synthes volar locking plate was then loosely applied to the volar aspect of the distal radius and then a single nonlocking screw was placed to the gliding hole of the plate and radiographs were obtained to confirm placement and alignment of the plate. Next, the locking guide was then placed in the distal screw holes, these were then filled with the exception of the screw into the ulnar most aspect of the distal radius. This was a decision made to use the plate as a buttress only in this singular hole to avoid any potential impingement within the sigmoid notch or the distal radial ulnar joint. Next, the plate was then fully locked in place with stabilization and near anatomic fixation of the 5-part intraarticular displaced comminuted distal radius fracture. Next, radiograph was obtained noting reasonable alignment of the ulnar styloid fragment. The wound was irrigated with sterile normal saline. The pronator quadratus was then closed using 2-0 Vicryl. The dermis was closed using buried interrupted 3-0 Vicryl, skin was closed with 4-0 nylon. A sterile compressive dressing and well-padded volar splint was then overwrapped with an Pavan wrap. The tourniquet was released. The patient was awakened and taken to recovery in stable condition. I attest to the content of the Intraoperative Record and any orders documented therein. Any exception s are noted below.
== END 2016-11-22 18:17 | disposition home or self-care (01) ==
LOC: C.ACU 09:56
PROVIDERS: ATTEND Orthopaedic Surgery Sports Medicine
DX: S52.572A Other intraarticular fracture of lower end of left radius, initial encounter for closed fracture (principal); S52.612A Displaced fracture of left ulna styloid process, initial encounter for closed fracture; W17.89XA Other fall from one level to another, initial encounter; E03.9 Hypothyroidism, unspecified; Z79.899 Other long term (current) drug therapy

== ENCOUNTER → 2017-01-29 | Outpatient (CLI) | payer BC ==
[~2017-01-29] MED LIST changes: -ATROPINE SULFATE 0.1 MG/ML 5ML SYR IV PRN; -CEFAZOLIN 1000MG/55 ML D5W IV SCH; -EpHEDrine SULFATE INJ 50 MG/ML AMP IV PRN; -FENTANYL CITRATE INJ 50 MCG/1 ML 2 ML VIAL IV PRN; -HYDR-5688 PO; -HYDROmorphone INJ 1 MG/ML SYR IV PRN; -ONDA4TAB46 PO; -ONDANSETRON INJ 2 MG/ML 2 ML VIAL IV PRN; +OXYC-57 PO
== END | disposition home or self-care (01) ==
LOC: C.LAB1850 15:17
PROVIDERS: ATTEND Internal Medicine
DX: E03.9 Hypothyroidism, unspecified (principal)

== ENCOUNTER → 2017-01-29 | Outpatient (CLI) | payer BC ==
--- NOTE | 2017-01-29 16:28 | MAMMOGRAPHY REPORT ---
BILATERAL DIGITAL SCREENING MAMMOGRAM TOMOSYNTHESIS WITH CAD: 01/29/2017 CLINICAL HISTORY: Routine screening. Patient has no complaints. TECHNIQUE: Breast tomosynthesis in addition to standard 2D mammography was performed. Current study was also evaluated with a Computer Aided Detection (CAD) system. COMPARISON: Comparison is made to exams dated: 01/29/2016 mammogram, 01/25/2015 mammogram, 09/23/2013 m ammogram, 09/22/2012 mammogram, 03/23/2012 mammogram, and 03/17/2012 mammogram - [facility]. BREAST COMPOSITION: The tissue of both breasts is heterogeneously dense, which may obscure small mas ses. FINDINGS: The parenchymal pattern is similar to prior mammograms. There is a stable ovoid 8 mm asym metry in the superior middle one third of the left breast on the MLO view, that appears similar datin g back to at least 03/17/2012, therefore likely benign. No developing mass, architectural distortion or cluster of suspicious microcalcifications is seen in either breast. IMPRESSION: ACR BI-RADS CATEGORY 2: BENIGN There is no mammographic evidence of malignancy. A 1 year screening mammogram is recommended. The pa tient will receive written notification of the results. Approximately 10% of breast cancers are not detected with mammography. A negative mammographic report should not delay biopsy if a clinically suggestive mass is present. Leeanne Rae M.D. ay/:01/29/2017 15:33:04 Staple Laster: Desiree GRANADOS(Vanessa)(Claudette)([place]), [facility] letter sent: Normal 1/2 BI-RADS Code: ACR BI-RADS Category 2: Benign
== END | disposition home or self-care (01) ==
LOC: C.MAMM 14:49
PROVIDERS: ATTEND Obstetrics & Gynecology
DX: Z12.31 Encounter for screening mammogram for malignant neoplasm of breast (principal); E03.9 Hypothyroidism, unspecified

== ENCOUNTER → 2017-02-18 | Outpatient (CLI) | payer BC ==
--- NOTE | 2017-02-18 10:57 | DIAGNOSTIC IMAGING REPORT ---
SOFT TISS HEAD/NECK-THYROID CLINICAL HISTORY: 51 years-old Female presenting with thyroid nodule. TECHNIQUE: Real-time grayscale and color Doppler ultrasound imaging of the thyroid and base of the neck was performed. COMPARISON: 01/25/2015. FINDINGS: Right lobe: Normal echogenicity but heterogeneous echotexture. The right lobe of the thyroid measures 3.5 x 1.1 x 1.2 cm. No nodules. No parenchymal hyperemia. Left lobe: Normal echogenicity but heterogeneous echotexture. The left lobe of the thyroid measures 4.0 x 1.4 x 1.1 cm. No nodules. No parenchymal hyperemia. Isthmus: The isthmus measures 4 mm in thickness. No nodules. IMPRESSION: Slight heterogeneity of thyroid parenchyma is unchanged from prior and could suggest underlying thyroid disease such as Antonia's thyroiditis or Graves' disease. No thyroid nodule. Electronically signed by: Jerry Patel M.D. 02/18/2017 10:56 AM Dictated Date/Time: 02/18/2017 10:55 AM
== END | disposition home or self-care (01) ==
LOC: C.ULTR 10:25
PROVIDERS: ATTEND Physician Assistant Medical
DX: Z01.419 Encounter for gynecological examination (general) (routine) without abnormal findings (principal); E03.9 Hypothyroidism, unspecified; R93.8 Abnormal findings on diagnostic imaging of other specified body structures

== ENCOUNTER → 2017-02-18 | Outpatient (CLI) | payer BC | END | disposition home or self-care (01) | LOC: C.PAPS 11:15 | PROVIDERS: ATTEND Obstetrics & Gynecology | DX: Z01.419 Encounter for gynecological examination (general) (routine) without abnormal findings (principal) ==

== ENCOUNTER → 2017-07-24 | Outpatient (CLI) | payer BC ==
[~2017-07-24] MED LIST changes: -OXYC-57 PO
--- NOTE | 2017-07-24 16:49 | DIAGNOSTIC IMAGING REPORT ---
R HAND MIN 3 VIEWS ROUTINE CLINICAL HISTORY: Right hand pain. Right first metacarpophalangeal joint swelling. COMPARISON: None FINDINGS: Alignment of the right hand is anatomic. No fracture or suspicious lesion is evident. There is moderate to severe osteoarthritis of the right first carpometacarpal joint. There is moderate arthritis of the triscaphe joint. Lucencies within the scaphoid and right first metacarpal suggests cysts. No definite erosions are identified. There is mild osteoarthritis of multiple additional articulations within the right hand. IMPRESSION: 1. Moderate to severe osteoarthritis of the right first carpometacarpal joint and moderate arthritis of the right triscaphe joint. Mild to moderate osteoarthrosis of the right first metacarpophalangeal joint. 2. No acute fracture. Electronically signed by: Josue Fields M.D. 07/24/2017 4:48 PM Dictated Date/Time: 07/24/2017 4:46 PM
== END | disposition home or self-care (01) ==
LOC: C.RAD1850 16:03
PROVIDERS: ATTEND Physician Assistant Medical
DX: M19.041 Primary osteoarthritis, right hand (principal); M18.11 Unilateral primary osteoarthritis of first carpometacarpal joint, right hand

== ENCOUNTER → 2017-08-13 | Outpatient (CLI) | payer BC | END | disposition home or self-care (01) | LOC: C.LAB1850 16:16 | PROVIDERS: ATTEND Physician Assistant Medical | DX: E03.9 Hypothyroidism, unspecified (principal) ==